=== PATIENT | female | born 1975 | race Two or more races ===

== ENCOUNTER 2025-02-27 11:39 | Inpatient (IN) | payer BC, OTHER ==
[2025-02-27] VITALS (7 sets, daily range): BP systolic 147–156; BP diastolic 94–98; PULSE 100–123; RESP 18–28; TEMP 97.7–98.1; O2SAT 93–100
[~2025-02-27] VITALS: Ht 160 cm; Wt 88.5 kg
--- NOTE | 2025-02-27 12:06 | ED.PDOC ---
HPI Comments 49 year old female with PMHx HTN, HI, COPD, GERD, asthma presents to the ED with a chief complaint of chest pain onset 4 days. Patient states she lives in [place], came to [place] for her sisters was 3 days ago. Since then, patient has been under stress, has been experiencing chest pain, worsens with inspiration. Last admission to [facility] was 07/02/24, was diagnosed with Pneumonia. Denies fever, chills, nausea, vomiting, diarrhea, abdominal pain. No other symptoms or modifying factors present at this time. Chief Complaint: Shortness of Breath Time Seen by MD: 11:50 Reviewed Notes: Medications, Allergies Allergies: Coded Allergies: ESTER Inhibitors (Verified Allergy, Unknown, 02/27/25) Information Source: Patient Mode of Arrival: Wheelchair Severity: Moderate Timing: Days Duration: Since onset Prehospital treatment: None Location: Chest (L) Radiation: No Radiation Quality: Sharp, Pressure Onset: At Rest Cardiac Risk Factors: Smoker, HTN PE Risk Factors: None History of: HI Modifying Factors: Nothing Past Medical History PAST MEDICAL HISTORY: Asthma, COPD, GERD, HTN, HI Surgical History: Denies all surgeries BROADCAST SYSTEMS ENGINEER History: No Pertinent BROADCAST SYSTEMS ENGINEER History Social History Smoker: Cigarettes Alcohol: Denies ETOH Use Drugs: Denies Drug Use Lives In: Home Constitutional: denies: chills, diaphoresis, fatigue, fever, malaise, sweats, weakness, others EENTM: denies: blurred vision, double vision, ear bleeding, ear discharge, ear drainage, ear pain, ear ringing, eye pain, eye redness, hearing loss, mouth pain, mouth swelling, nasal discharge, nose bleeding, nose congestion, nose pain, photophobia, tearing, throat pain, throat swelling, voice changes, others Respiratory: denies: cough, hemoptysis, orthopnea, SOB at rest, shortness of breath, SOB with excertion, stridor, wheezing, others Cardiovascular: reports: chest pain; denies: dizzy spells, diaphoresis, Dyspnea on exertion, edema, irregular heart beat, left arm pain, lightheadedness, palp itations, PND, syncope, others Gastrointestinal: denies: abdomen distended, abdominal pain, blood streaked bowels, constipated, diarrhea, dysphagia, difficulty swallowing, hematemesis, melena, nausea, poor appetite, poor fluid intake, rectal bleeding, rectal pain, vomiting, others Genitourinary: denies: abnormal vagina bleeding, burning, dyspareunia, dysuria, flank pain, frequency, hematuria, incontinence, pain, , vagina discharge, urgency, others Neurological: denies: dizziness, fainting, headache, left sided numbness, left sided weakness, numbness, paresthesia, pre-existing deficit, right sided numbness, right sided weakness, seizure, speech problems, tingling, tremors, weakness, others Musculoskeletal: denies: back pain, gout, joint pain, joint swelling, muscle pain, muscle stiffness, neck pain, others Integumetry: denies: bruises, change in color, change in hair/nails, dryness, laceration, lesions, lumps, rash, wounds, others Allergic/Immunocompromised: denies: Difficulty Healing, Frequent Infections, Hives, Itching, others Hematologic/Lymphatic: denies: anemia, blood clots, easy bleeding, easy br uising, swollen glands, others Endocrine: denies: excessive hunger, excessive sweating, excessive thirst, excessive urination, flushing, intolerance to cold, intolerance to heat, unexplained weight gain, unexplained weight loss, others Psychiatric: reports: anxiety; denies: bipolar disorder, depression, hopeless, panic disorder, schizophrenia, sleepless, suicidal, others All Other Systems: Reviewed and Negative Physical Exam General Appearance: Normal, Other (anxious appearing) HEENT: Normal ENT Inspection, Pharynx Normal, TMs Normal Neck: Full Range of Motion, Non-Tender, Normal, Normal Inspection Respiratory: Chest Non-Tender, Lungs Clear, No Accessory Muscle Use, No Respiratory Distress, Normal Breath Sounds Cardiovascular: No Edema, No JVD, No Murmur, No Gallop, Normal Peripheral Pulses, Regular Rate/Rhythm Breast Exam: Deferred Gastrointestinal: No Organomegaly, Non Tender, No Pulsatile Mass, Normal Bowel Sounds, Soft Genitalia: Deferred Pelvic: Deferred Rectal: Deferred Extremities: No calf tenderness, Normal capillary refill, Normal inspection, Normal range of motion, Non-tender, No pedal edema Musculoskeletal : Apperance: Normal Neurologic: Alert, second vp hr assessment II-XII nml as Tested, No Motor Deficits, Normal Affect, Normal Mood, No Sensory Deficits Cerebellar Function: Normal Reflexes: Normal Skin: Dry, Normal Color, Warm Lymphatic: No Adenopathy Was a procedure done? Was a procedure done?: No CP Differential Dx Differential Diagnosis: Pulmonary Embolus Differential Diagnosis: Angina, Aortic dissection, Chest Wall Pain, Cholelithiasis, Costochondritis, Esophageal reflux/spasm, Gastritis, Myocardial Infarction, Pericarditis, Pneumonia, Pneumothorax, Pulmonary Embolus X-Ray, Labs, Meds, VS Vital Signs Date Time Temp Pulse Resp B/P (MAP) Pulse Ox O2 Delivery O2 Flow Rate FiO2 02/27/25 12:32 123 22 100 Room Air* 0 21 02/27/25 12:30 97.7 120 22 147/94 (111) 99 97.7 02/27/25 11:42 97.5 120 18 138/89 100 97.5 Lab Test 02/27/25 13:26 02/27/25 12:36 Range/Units Troponin I High Sensitivity 47 *H 49 *H </=34 ng/L White Blood Count 8.8 4.4-10.8 10^3/uL Red Blood Count 3.77 L 4.0-5.20 10^6/uL Hemoglobin 9.3 L 12.2-16.2 g/dL Hematocrit 29.0 L 36.0-46.0 % Mean Corpuscular Volume 76.8 L 80.0-100.0 fL Mean Corpuscular Hemoglobin 24.7 L 28.0-32.0 pg Mean Corpuscular Hemoglobin Concent 32.2 32.0-36.0 g/dL Red Cell Distribution Width 23.2 H 11.8-14.3 % Platelet Count 655 H 140-450 10^3/uL Mean Platelet Volume 7.9 6.9-10.8 fL Neutrophils (%) (Auto) 74.4 37.0-80.0 % Lymphocytes (%) (Auto) 17.1 10.0-50.0 % Monocytes (%) (Auto) 6.9 0.0-12.0 % Eosinophils (%) (Auto) 0.8 0.0-7.0 % Basophils (%) (Auto) 0.8 0.0-2.0 % Neutrophils # (Auto) 6.5 1.6-8.6 10 ^3/uL Lymphocytes # (Auto) 1.5 0.4-5.4 10 ^3/uL Monocytes # (Auto) 0.6 0-1.3 10 ^3/uL Eosinophils # (Auto) 0.1 0-0.8 10 ^3/uL Basophils # (Auto) 0.1 0-0.2 10 ^3/uL Nucleated Red Blood Cells 0.1 % Sodium Level 143 136-145 mmol/L Potassium Level 2.9 L 3.5-5.1 mmol/L Chloride Level 104 98-107 mmol/L Carbon Dioxide Level 24 20-31 mmol/L Anion Gap 15 5-15 Blood Urea Nitrogen 9 9-23 mg/dL Creatinine 0.93 0.550-1.02 mg/dL Glomerular Filtration Rate Calc 74 >90 mL/min BUN/Creatinine Ratio 9.7 L 10.0-20.0 Serum Glucose 119 H 74-106 mg/dL Calcium Level 9.7 8.7-10.4 mg/dL Current Medications Medications (Trade) Dose Ordered Sig/Bhaskar Route Start Time Stop Time Status Last Admin Ketorolac Tromethamine (Toradol Injection) 15 mg ONCE ONCE IM 02/27/25 12:15 02/27/25 12:16 DC 02/27/25 12:37 [place] [id number] Ph: [phone] DIAGNOSTIC IMAGING Diagnostic Imaging Report : [id number] Signed PATIENT: MARGARET MCGILL ACCT: [id number] UNIT: [id number] : 1975 LOC: ER ROOM / BED: / AGE / SEX: 49 / F ADM STATUS: REG ER SERVICE 1202 ORDERING PHYSICIAN: LOW FALL MD PROCEDURE(s): CXR1 - CHEST XRAY 1 VIEW REASON: cp ORDER NUMBER(s): [id number], ACCESSION NUMBER(s): [id number] CHEST RADIOGRAPH Indication: cp Technique: Single frontal view of the chest was obtained Comparison: None FINDINGS: Lines and Tubes: None Lungs: Areas of scarring or linear atelectasis left base with tenting of the left diaphragm. Pleura: No effusion. No pneumothorax. Cardiomediastinal contours: Unremarkable Bones: No acute osseous abnormality. IMPRESSION: 1. Scarring or linear atelectasis left lower lung field with tenting of the left diaphragm. 2. No prior studies for comparison to determine acute versus chronic changes. ATED BY: SHAUNA WILLETT Jr., DO DICTATED DATE/TIME: 02/27/25 1238 SIGNED BY: SHAUNA WILLETT Jr., SIGNED DATE/TIME: 02/27/251237 CC: Time of 1ST Reevaluation: 12:20 Reevaluation 1ST: Unchanged Patient Education/Counseling: Diagnosis, Treatment, Prognosis, Need For Follow Up Family Education/Counseling: No Family Present Comments pt has a HEART score of 5. her trp is elevated. she will be admitted for nstemi Due to concerns for patients condition deteriorating, the care required my highest level of attention and readiness to intervene. I assessed the patient, reviewed the medical records, ordered the appropriate tests and treatments, then reassessed for results and responsiveness. I communicated with medical personnel and consultants and formulated a plan of care. Total critical care time excludes any procedures 55 mins Additional Information Review charts from previous visit: 01/28/21 with diarrhea, 07/02/24 with pneumonia The following tests were ordered, and results were reviewed by me: XY CHEST, TROP-x3, BMP, CBC Additional Information was gathered from interviewing the following independent historians: I reviewed and agreed with the following test results read by other providers: XY CHEST I discussed treatment and results with medical personnel and: patient Comprehensive systems review obtained and negative except for what is stated in the HPI. SEPSIS Sepsis Screen Date sepsis recognized/suspect: Feb 27, 2025 Time Sepsis recognized/suspect: 1145 Recent Procedure: No On Antibiotic Therapy: No Respiratory Rate >20: No Heart Rate >90: Yes Temp<36 C (96.8 F) or >38.3 C: No SBP <90 or MAP <65 mmHG: No New Acute Mental Status Change: No Is the patient on CPAP, BIPAP,: No Physician Orders Chest Xray 1 View (02/27/25 12:02) Troponin-I Hs (02/27/25 15:02) Potassium Er Tablet (Klor-Con Tablet) (02/27/25 14:30) Aspirin Chewable Tablet (02/27/25 14:30) Vital Signs Date Time Temp Pulse Resp B/P (MAP) Pulse Ox O2 Delivery O2 Flow Rate FiO2 02/27/25 12:32 123 22 100 Room Air* 0 21 02/27/25 12:30 97.7 120 22 147/94 (111) 99 97.7 02/27/25 11:42 97.5 120 18 138/89 100 97.5 Laboratory Tests Test 02/27/25 12:36 White Blood Count 8.8 10^3/uL (4.4-10.8) Medications Medications Dose Ordered Sig/Bhaskar Route Start Time Stop Time Status Last Admin Dose Admin Ketorolac Tromethamine 15 mg ONCE ONCE IM 02/27/25 12:15 02/27/25 12:16 DC 02/27/25 12:37 Departure 1 Departure Time of Disposition: 14:26 Impression: Primary Impression: NSTEMI (non-ST elevated myocardial infarction) Disposition: ADMITTED INPATIENT Admit to: Tele Condition: Serious Discharged With: Self Critical Care Note Critical Care Time?: Yes (55 min-critical care time only) Critical care comment: Due to concerns for patients condition deteriorating, the care required my highest level of attention and readiness to intervene. I assessed the patient, reviewed the medical records, ordered the appropriate tests and treatments, then reassessed for results and responsiveness. I communicated with medical personnel and consultants and formulated a plan of care. Total critical care time excludes any procedures Stability Stability form required: No Heart Score Heart Score: Heart Score Response (Comments) Value History N/A 0 EKG N/A 0 Age N/A 0 Risk Factors N/A 0 Troponin N/A 0 Total 0 I personally scribed for LOW FALL MD ([email or web address]) on 02/27/25 at 12:06. Electronically submitted by Mattie Anthony ([email or web address]). I personally scribed for LOW FALL MD ([email or web address]) on 02/27/25 at 12:30. Electronically submitted by Mattie Anthony ([email or web address]). I personally scribed for LOW FALL MD ([email or web address]) on 02/27/25 at 12:44. Electronically submitted by Mattie Anthony ([email or web address]). LOW FALL MD Feb 27, 2025 12:06
[2025-02-27] MEDS: KETOROLAC TROMETH 30 MG/ML 1ML VIAL IM ONE (12:37)
--- NOTE | 2025-02-27 12:41 | DVH ---
CHEST RADIOGRAPH Indication: cp Technique: Single frontal view of the chest was obtained Comparison: None FINDINGS: Lines and Tubes: None Lungs: Areas of scarring or linear atelectasis left base with tenting of the left diaphragm. Pleura: No effusion. No pneumothorax. Cardiomediastinal contours: Unremarkable Bones: No acute osseous abnormality. IMPRESSION: 1. Scarring or linear atelectasis left lower lung field with tenting of the left diaphragm. 2. No prior studies for comparison to determine acute versus chronic changes.
[2025-02-27 12:58] LABS: Hematocrit 29.0 % (36.0-46.0); Hemoglobin 9.3 g/dL (12.2-16.2); Mean Corpuscular Hemoglobin 24.7 pg (28.0-32.0); Mean Corpuscular Volume 76.8 fL (80.0-100.0); Nucleated Red Blood Cells % 0.1 %
[2025-02-27 13:01] LABS: Chloride 104 mmol/L (98-107); Sodium 143 mmol/L (136-145)
[2025-02-27 13:02] LABS: Anion Gap 15 (5-15); Calcium 9.7 mg/dL (8.7-10.4); Carbon Dioxide 24 mmol/L (20-31)
[2025-02-27 13:06] LABS: Potassium 2.9 mmol/L (3.5-5.1)
[2025-02-27 13:07] LABS: BUN/Creatinine Ratio 9.7 (10.0-20.0); Blood Urea Nitrogen 9 mg/dL (9-23)
[2025-02-27 13:13] LABS: Glucose 119 mg/dL (74-106)
[2025-02-27] MEDS ORDERED: MORPHINE SULFATE INJ 2 MG/ml SYRG IV PRN (15:00)
[2025-02-27] MEDS ORDERED: ACETAMINOPHEN 325 MG TAB PO PRN (15:00)
[2025-02-27] MEDS ORDERED: NITROGLYCERIN 0.4 MG SL TAB SL PRN (15:00)
[2025-02-27] MEDS ORDERED: ONDANSETRON HCL 4 MG/2 ML VIAL IV PRN (15:00)
[2025-02-27] MEDS: POTASSIUM CHL 20 Meq TABLET PO ONE (15:08)
--- NOTE | 2025-02-27 15:34 | DVHHP2 ---
History of Present Illness Reason for Visit: Shortness of breath History of Present Illness Juani Myles is a 49-year-old female with past medical history of hypertension, COPD, GERD, and asthma, who came to the hospital for shortness of breath. Patient states she has been experiencing shortness of breath since last Thursday. [place] here for her sister's . She didn't want to come to the hospital sooner cause she didn't want to miss her . She states she is getting left sided chest pain, worse with deep breath. Patient states that she has had a full feeling for a couple weeks, and has not been able to eat much. She also states that she has been having vaginal bleeding for a month. Will complete further work up. Cardiovascular: HTN Pulmonary: COPD GI: GERD Past Surgical History: (x 3) Smoke: 1 pack per day ALCOHOL: rare Drugs: None Lives: with Family Domestic Violence: Neg Review of Systems Constitutional: No: Fever, Chills, Sweats, Weakness, Malaise, Other Eyes: No: Pain, Vision change, Conjunctivae inflammation, Eyelid inflammation, Other, Redness ENT: No: Ear pain, Ear discharge, Nose pain, Nose discharge, Nose congestion, Mouth pain, Mouth swelling, Throat pain, Throat swelling, Other Respiratory: Cough, Shortness of breath, SOB with excertion; No: Dry, Wheezing, Hemoptysis, Pleuritic Pain, Sputum, Wheezing, Other Cardiovascular: Chest Pain; No: Palpitations, Orthopnea, Paroxysmal Noc. Dyspnea, Edema, Lt Headedness, Other Gastrointestinal: No: Nausea, Vomiting, Abdominal Pain, Diarrhea, Constipation, Melena, Hematochezia, Other Genitourinary: No Dysuria, No Frequency, No Incontinence, No Hematuria, No Retention, No Other Musculoskeletal: No: other, neck pain, shoulder pain, arm pain, back pain, hand pain, leg pain, foot pain Skin: No: Rash, Lesions, Jaundice, Bruising, Other Neurological: No: Weakness, Numbness, Incoordination, Change in speech, Confusion, Seizures, Other Allergies: Coded Allergies: ESTER Inhibitors (Verified Allergy, Unknown, 02/27/25) Medications Current Medications Medications Dose Ordered Sig/Bhaskar Route Start Time Stop Time Status Last Admin Dose Admin Acetaminophen/ Hydrocodone Bitart 1 tab Q4HP PRN PO 02/27/25 15:00 UNV Ondansetron HCl 4 mg Q4HP PRN IV 02/27/25 15:00 UNV Docusate Sodium 100 mg BIDPRN PRN PO 02/27/25 15:00 UNV Acetaminophen 650 mg Q6HP PRN PO 02/27/25 15:00 UNV Nitroglycerin 0.4 mg Q5MINP PRN SL 02/27/25 15:00 UNV Morphine Sulfate 2 mg Q30M PRN IV 02/27/25 15:00 UNV Exam Vital Signs Vital Signs Date Time Temp Pulse Resp B/P (MAP) Pulse Ox O2 Delivery O2 Flow Rate FiO2 02/27/25 12:32 123 22 100 Room Air* 0 21 02/27/25 12:30 97.7 147/94 (111) 97.7 General Appearance: Alert, Oriented X3, Cooperative, moderate distress HEENT: Atraumatic, PERRLA, Other (Mucous membr dry) Respiratory: Other (Diminshed breath sounds, worse on left) Cardiovascular: Normal S1, Normal S2, Other (ST) Abdominal: Normal bowel sounds, Soft, No tenderness Extremities: No clubbing, No cyanosis, No edema, Normal pulses Skin: No rashes, No breakdown, No significant lesion Neuro: Normal gait, Normal speech, Strength at 5/5 X4 ext, Normal tone Psych/Mental Status: Mental status NL, Mood NL Labs/Xrays Labs Test 02/27/25 13:26 02/27/25 12:36 Range/Units Troponin I High Sensitivity 47 *H </=34 ng/L White Blood Count 8.8 4.4-10.8 10^3/uL Red Blood Count 3.77 L 4.0-5.20 10^6/uL Hemoglobin 9.3 L 12.2-16.2 g/dL Hematocrit 29.0 L 36.0-46.0 % Mean Corpuscular Volume 76.8 L 80.0-100.0 fL Mean Corpuscular Hemoglobin 24.7 L 28.0-32.0 pg Mean Corpuscular Hemoglobin Concent 32.2 32.0-36.0 g/dL Red Cell Distribution Width 23.2 H 11.8-14.3 % Platelet Count 655 H 140-450 10^3/uL Mean Platelet Volume 7.9 6.9-10.8 fL Neutrophils (%) (Auto) 74.4 37.0-80.0 % Lymphocytes (%) (Auto) 17.1 10.0-50.0 % Monocytes (%) (Auto) 6.9 0.0-12.0 % Eosinophils (%) (Auto) 0.8 0.0-7.0 % Basophils (%) (Auto) 0.8 0.0-2.0 % Neutrophils # (Auto) 6.5 1.6-8.6 10 ^3/uL Lymphocytes # (Auto) 1.5 0.4-5.4 10 ^3/uL Monocytes # (Auto) 0.6 0-1.3 10 ^3/uL Eosinophils # (Auto) 0.1 0-0.8 10 ^3/uL Basophils # (Auto) 0.1 0-0.2 10 ^3/uL Nucleated Red Blood Cells 0.1 % Sodium Level 143 136-145 mmol/L Potassium Level 2.9 L 3.5-5.1 mmol/L Chloride Level 104 98-107 mmol/L Carbon Dioxide Level 24 20-31 mmol/L Anion Gap 15 5-15 Blood Urea Nitrogen 9 9-23 mg/dL Creatinine 0.93 0.550-1.02 mg/dL Glomerular Filtration Rate Calc 74 >90 mL/min BUN/Creatinine Ratio 9.7 L 10.0-20.0 Serum Glucose 119 H 74-106 mg/dL Calcium Level 9.7 8.7-10.4 mg/dL CHEST RADIOGRAPH FINDINGS: Lines and Tubes: None Lungs: Areas of scarring or linear atelectasis left base with tenting of the lef t diaphragm. Pleura: No effusion. No pneumothorax. Cardiomediastinal contours: Unremarkable Bones: No acute osseous abnormality. IMPRESSION: 1. Scarring or linear atelectasis left lower lung field with tenting of the left diaphragm. 2. No prior studies for comparison to determine acute versus chronic changes. SEPSIS Sepsis Screen Date sepsis recognized/suspect: Feb 27, 2025 Time Sepsis recognized/suspect: 1145 Recent Procedure: No On Antibiotic Therapy: No Respiratory Rate >20: No Heart Rate >90: Yes Temp<36 C (96.8 F) or >38.3 C: No SBP <90 or MAP <65 mmHG: No New Acute Mental Status Change: No Is the patient on CPAP, BIPAP,: No Physician Orders Chest Xray 1 View (02/27/25 12:02) Troponin-I Hs (02/27/25 15:02) Admit (02/27/25 14:56) Code Status (02/27/25 14:56) 2 Gm Sodium Diet (02/27/25 Dinner) Hydrocodone-Acet 5/325mg Tab ([place] /32 (02/27/25 15:00) Ondansetron Hcl (Zofran) (02/27/25 15:00) Docusate Sodium Capsule (Colace Capsule) (02/27/25 15:00) Complete Blood Count (02/28/25 04:00) Comprehensive Metabolic Panel (02/28/25 04:00) Echo 2d Mode Cardiac Dop (02/27/25 14:56) Condition: Serious (02/27/25 14:56) Acetaminophen Tablet (Tylenol Tablet) (02/27/25 15:00) Nitroglycerin Sublingual (Ntrostat Subli (02/27/25 15:00) Morphine Sulfate Injection (02/27/25 15:00) Stat Ekg For Chest Pain (02/27/25 14:56) Notify Md Of Changes From Base (02/27/25 14:56) Wrapping Machine Tender For 24 Hours (02/27/25 14:56) Emergency Dysrhythmia Protocol (02/27/25 14:56) Rhythm Strips Once Every Shift (02/27/25 14:56) Oxygen By Nasal Cannula (02/27/25 14:56) D-Dimer (02/27/25 15:01) Vital Signs Date Time Temp Pulse Resp B/P (MAP) Pulse Ox O2 Delivery O2 Flow Rate FiO2 02/27/25 12:32 123 22 100 Room Air* 0 21 02/27/25 12:30 97.7 120 22 147/94 (111) 99 97.7 02/27/25 11:42 97.5 120 18 138/89 100 97.5 Laboratory Tests Test 02/27/25 12:36 White Blood Count 8.8 10^3/uL (4.4-10.8) Medications Medications Dose Ordered Sig/Bhaskar Route Start Time Stop Time Status Last Admin Dose Admin Ketorolac Tromethamine 15 mg ONCE ONCE IM 02/27/25 12:15 02/27/25 12:16 DC 02/27/25 12:37 15 MG Assessment/Plan Assessment/Plan Assessment: Hypokalemia, Elevated troponin, Elevated D-dimer, Possible pneumonia, Abnormal vaginal bleeding, Plan: Admit to Tele, ECHO, Consider cardiology consult, D-Dimer, Possible CT angio of chest, Breathing treatments, IV antibiotics, Manage/Monitor electrolytes closely, Consider AIRPORT CLERK consult, Plan discussed with: Patient My Orders Orders - NICKOLAS CHAO Procedure Category Date Status Time Admit ADMIT 02/27/25 Transmitted 14:56 Code Status CODE 02/27/25 Transmitted 14:56 2 Gm Sodium Diet DIET 02/27/25 Transmitted Dinner Hydrocodone-Acet PHA 02/27/25 Logged 5/325mg Tab ([place] 15:00 Ondansetron Hcl PHA 02/27/25 Logged (Zofran) 15:00 Docusate Sodium PHA 02/27/25 Logged Capsule (Colace 15:00 Complete Blood Count LAB 02/28/25 Verified 04:00 Comprehensive LAB 02/28/25 Verified Metabolic Panel 04:00 Echo 2d Mode Cardiac US 02/27/25 Logged DOP 14:56 Condition: Serious [facility] 02/27/25 In Process 14:56 Acetaminophen Tablet PHA 02/27/25 Logged (Tylenol Tablet) 15:00 Nitroglycerin PHA 02/27/25 Logged Sublingual (Ntrostat 15:00 Morphine Sulfate PHA 02/27/25 Logged Injection 15:00 Stat Ekg For Chest [facility] 02/27/25 In Process Pain 14:56 Notify Of Changes [facility] 02/27/25 In Process From Base 14:56 Wrapping Machine Tender For [facility] 02/27/25 In Process 24 Hours 14:56 Emergency Dysrhythmia [facility] 02/27/25 In Process Protocol 14:56 Rhythm Strips Once [facility] 02/27/25 In Process Every Shift 14:56 Oxygen By Nasal RT 02/27/25 Transmitted Cannula 14:56 D-Dimer LAB 02/27/25 Transmitted 15:01 Date of Service: Feb 27, 2025 Billing Provider: NICKOLAS CHAO Common Visit Codes: 52070-[id number] INP/OBS CARE (HIGH) NICKOLAS CHAO Feb 27, 2025 15:34
[2025-02-27] MEDS ORDERED: ALBUTEROL SULF 2.5 MG/0.5ML(0.5%) NEB SOLN NEB SCH (18:00)
--- NOTE | 2025-02-27 19:35 | DVH ---
COMPUTERIZED TOMOGRAPHIC ANGIOGRAPHY OF THE CHEST WITH INTRAVENOUS CONTRAST REASON FOR EXAM: Chest pain. R/O PE COMPARISON: XY CHEST XRAY 1 VIEW on DOS: 02/27/25 TECHNIQUE: The exam was performed on a multidetector spiral scanner. Spiral images were acquired from the thoracic inlet through the adrenal glands, during the bolus intravenous administration of contrast. Multiplanar maximum intensity projection (MIP) images were provided. Radiation optimization: All CT scans at this facility use at least one of these dose optimization techniques: Automated exposure control mA and/or kV adjustment per patient size (includes targeted exams where dose is matched to clinical indication) or iterative reconstruction. CONTRAST ADMINISTERED: 100 mL omnipaque 350 intravenously. RADIATION DOSE: CTDI: 28 mGy DLP: 1028 mGy-cm FINDINGS: Respiratory motion significantly degrades evaluation of the lung parenchyma. There are several filling defects throughout pulmonary arterial tree in both lungs involving interlobar and subsegmental branches with the greatest clot burden in the left lower lobe. There are several wedge-shaped peripheral areas of ground-glass opacity in the left lower lobe likely representing evolving pulmonary infarcts. There is subtle perihilar patchy ground-glass opacity in both lungs suggesting pulmonary edema. There is a small left pleural effusion. There is no pneumothorax. The visualized thyroid gland is grossly unremarkable. The heart is not enlarged. There is no thoracic aortic aneurysm identified. There are prominent subsegmental mediastinal and hilar lymph nodes. There is an approximately 5.3 x 8.3 cm masslike density in the right upper quadrant of the partially visualized abdomen that may represent a distended bowel loop, only partially visualized. No acute osseous abnormality is identified. IMPRESSION: Extensive pulmonary emboli bilaterally involving interlobar and more distal branches of the pulmonary arterial tree. Peripheral wedge-shaped ground-glass opacities in the left lower lobe likely represent evolving pulmonary infarcts. Subtle ground-glass opacity in both lungs in a perihilar distribution is suggestive of pulmonary edema. Small left pleural effusion. Possible partially visualized mass in the right upper quadrant of the abdomen. This is only partially visualized and may represent a distended bowel loop. Recommend further evaluation of the abdomen and pelvis. Pulmonary emboli Critical Result: Pumonary Emboli Findings discussed with EMIL Ballesteros, at 02/27/2025 07:29 PM, and acknowledged receipt and understanding of the findings. #CRITICAL#
[2025-02-27] MEDS: IPRATROPIUM BROM 0.5 MG/2.5ML INH SOL NEB SCH (19:48)
[2025-02-27] MEDS: LEVALBUTEROL HCL 1.25 MG/3 ML NEB NEB SCH (19:49)
[2025-02-27] MEDS: IOHEXOL 350 MG/ML 100ML IJ ONE (19:54)
[2025-02-27 20:15] LABS: Potassium 4.1 mmol/L (3.5-5.1)
[2025-02-27 20:22] LABS: Magnesium 1.9 mg/dL (1.6-2.6)
[2025-02-27 20:38] LABS: INR 1.03 (0.9-1.15); Partial Thromboplastin Time 26.2 SEC (24.5-34.5); Prothrombin Time 10.9 sec (9.3-11.8)
--- NOTE | 2025-02-27 20:42 | DVH ---
Exam: CT CT AB PEL WO CON-NO ORAL OR IV History: abd pain Comparison Study: None TECHNIQUE: Multidetector CT of the abdomen AND PELVIS without IV contrast. Axial, coronal and sagittal multiplanar reformats were obtained from the axial data set by the technologist. Radiation Dose Information: CT Dose: CTDI volume is 26.27 mGy. Dose-length product is 1484.04 mGy*cm FINDINGS: Trace left-sided pleural effusion with bibasilar atelectasis and patchy glass opacities of the left lower lobe with surrounding consolidation. Borderline cardiomegaly. Liver, spleen, gallbladder, pancreas and adrenal glands unremarkable. Contrast is noted within the bilateral renal collecting systems. [id number] Right-sided Hydronephrosis with mild right proximal hydro ureter. Contrast is noted within the urinary bladder. Slight bulky heterogeneous appearance of the uterus with multiple heterogeneous lesions and a partially calcified lesion. The uterus measures up to 11 x 20 x 15 cm and extends up to the level of the midabdomen. 8 and pulmonary is noted in place. Stomach is unremarkable. 1.1 cm Suggested small bowel lipoma of the left lower abdominal quadrant. Small bowel loops are unremarkable. Contrast is noted within Small bowel loops over the left hemiabdomen and left hemipelvis. Appendix is not definitely visualized. Large bowel is unremarkable. No evidence of intraperitoneal free air or free fluid. No evidence of aortic aneurysm . No significant lymphadenopathy. Sub centimeter bilateral inguinal lymph nodes which may be reactive. 1.4 x 4 cm lipoma over the right medial upper thigh. No evidence of acute osseous abnormalities. IMPRESSION: There is significant enlargement of the uterus which appears heterogeneous with multiple heterogeneous lesions. Correlate for Possible myomatous uterus. Neoplasm can not be completely excluded. Recommend correlation with history and ultrasound /MRI for further evaluation. Trace left-sided pleural effusion with bibasilar atelectasis possible left basilar areas of infarcts when correlated with same day CTA chest. [id number]-[id number] Right-sided hydronephrosis mild right proximal hydroureter which may be from mass effect from the significantly enlarged uterus
[2025-02-27 21:30] LABS: Hematocrit 28.3 % (36.0-46.0); Hemoglobin 9.0 g/dL (12.2-16.2); Mean Corpuscular Hemoglobin 24.4 pg (28.0-32.0); Mean Corpuscular Volume 76.9 fL (80.0-100.0); Nucleated Red Blood Cells % 0.2 %
[2025-02-27] MEDS: HEPARIN SODIUM (PORCINE) 5000 UNITS/ML 1ML VIAL IV ONE (21:43)
[2025-02-27] MEDS: HEPARIN DRIP/D5W 100UNITS/ML 250 ML IV SCH (21:45)
--- NOTE | 2025-02-27 21:47 | DVH ---
TRANSABDOMINAL AND TRANSVAGINAL PELVIC ULTRASOUND CLINICAL HISTORY: Abdominal mass TECHNIQUE: Multiple grayscale ultrasound images were obtained of the pelvis via transabdominal approach. Limited color Doppler and spectral Doppler acquisitions were also obtained. COMPARISON: None FINDINGS: Uterus: 19.5 x 12 x 7 x 15.4 cm. The uterine contour is smooth. Multiple uterine masses some of which contain calcification. A patient services representative mass measures 6.5 x 5.4 x 5.3 cm. Endometrium: Distorted from the uterine masses and not optimally evaluated, possibly measuring 1.2 cm. Right adnexa: right ovary 4.3 x 2.9 x 3.1 cm. Normal arterial blood flow in the ovary. No right adnexal mass seen. Left adnexa: left ovary not visualized. No left adnexal mass seen. Other: None IMPRESSION: 1. Markedly enlarged uterus containing numerous masses likely fibroids.
[2025-02-27] MEDS: HYDROcodone-ACET 5/325MG TAB PO PRN (22:39)
[2025-02-28] VITALS (13 sets, daily range): BP systolic 112–143; BP diastolic 63–94; PULSE 83–113; RESP 17–19; TEMP 98–99.1; O2SAT 94–100
[2025-02-28] MEDS ORDERED: NORETAB32 PO (00:15)
[2025-02-28] MEDS: DOCUSATE SOD 100 MG CAP PO PRN (03:24)
[2025-02-28 04:34] LABS: Hematocrit 24.8 % (36.0-46.0); Hemoglobin 8.0 g/dL (12.2-16.2); Mean Corpuscular Hemoglobin 24.3 pg (28.0-32.0); Mean Corpuscular Volume 75.2 fL (80.0-100.0); Nucleated Red Blood Cells % 0.2 %
[2025-02-28 04:43] LABS: INR 1.14 (0.9-1.15); Partial Thromboplastin Time 44.1 SEC (24.5-34.5); Prothrombin Time 11.9 sec (9.3-11.8)
[2025-02-28 04:55] LABS: Albumin 3.9 g/dL (3.2-4.8); Anion Gap 12 (5-15); BUN/Creatinine Ratio 12.0 (10.0-20.0); Blood Urea Nitrogen 9 mg/dL (9-23); Calcium 9.0 mg/dL (8.7-10.4); Carbon Dioxide 22 mmol/L (20-31); Chloride 104 mmol/L (98-107); Glucose 89 mg/dL (74-106); Sodium 138 mmol/L (136-145); Total Protein 7.3 g/dL (5.7-8.2)
[2025-02-28 05:00] LABS: Alanine Aminotransferase < 9 U/L (7-40); Alkaline Phosphatase 35 U/L (46-116); Bilirubin, Total 0.3 mg/dL (0.2-1.0); Potassium 3.5 mmol/L (3.5-5.1)
[2025-02-28] MEDS: HEPARIN DRIP/D5W 100UNITS/ML 250 ML IV SCH ×2 (05:22→18:30)
--- NOTE | 2025-02-28 07:47 | DVHCONRES ---
Date Seen: Feb 28, 2025 Resident Creating Document: KEELEY KAUR Jr., MD Referring Physician ER Reason for Consultation pulmonary embolism History of Present Illness 49-year-old female with past medical history of hypertension, COPD, GERD, and asthma, who came to the hospital for shortness of breath. Patient states she has been experiencing shortness of breath since last Thursday. [place] came here for her sister's . She didn't want to come to the hospital sooner cause she didn't want to miss her . She states she is getting left sided chest pain, worse with deep breath. She also states that she has had a full feeling and has not been able to eat much. Past Medical History copd, gerd, htn Past Surgical History Family History no history Social History 1 pack a day smoker Allergies: Coded Allergies: ESTER Inhibitors (Verified Allergy, Unknown, 02/27/25) Home Meds Reported Medications Norethindrone Acetate-Ethinyl (LO LOESTRIN FE) Tab, 2 TAB PO DAILY, #28 TAB 11 Refills 02/28/25 Current Medications Current Medications Medications (Trade) Dose Ordered Sig/Bhaskar Route PRN Reason Start Time Stop Time Status Last Admin Acetaminophen/ Hydrocodone Bitart (Artesian 5/325MG Tab) 1 tab Q4HP PRN PO MODERATE PAIN (4-6 PAIN SCALE) 02/27/25 15:00 02/28/25 03:24 Ondansetron HCl (Zofran) 4 mg Q4HP PRN IV NAUSEA / VOMITING 02/27/25 15:00 Docusate Sodium (Colace Capsule) 100 mg BIDPRN PRN PO FOR CONSTIPATION 02/27/25 15:00 02/28/25 03:24 Acetaminophen (Tylenol Tablet) 650 mg Q6HP PRN PO PAIN SCALE 1-3 OR TEMP>100.4 02/27/25 15:00 Nitroglycerin (Ntrostat Sublingual) 0.4 mg Q5MINP PRN SL FOR CHEST PAIN 02/27/25 15:00 Morphine Sulfate 2 mg Q30M PRN IV FOR CHEST PAIN 02/27/25 15:00 Ipratropium [place] (Atrovent Medneb) 0.5 mg Q6HWA NEB 02/27/25 18:00 02/28/25 07:30 Albuterol (Ventolin Medneb) 2.5 mg Q6HWA [facility] 02/27/25 18:00 Cancel Levalbuterol HCl (Xopenex Medneb) 0.625 mg Q6HWA [facility] 02/27/25 18:00 02/28/25 07:30 Heparin Sodium/ Dextrose 250 ml @ 16 mls/hr [id number] IV 02/27/25 21:00 02/28/25 04:54 DC 02/27/25 21:45 Heparin Sodium/ Dextrose 250 ml @ 18 mls/hr [id number] IV 02/28/25 05:00 02/28/25 05:22 Review of Systems all systems reviewed otherwise negative Vital Signs Vital Signs Date Time Temp Pulse Resp B/P (MAP) Pulse Ox O2 Delivery O2 Flow Rate FiO2 02/28/25 07:36 100 18 100 02/28/25 07:30 Room Air* 0 21 02/28/25 04:47 99.1 143/94 (110) 99.1 Physical Exam lungs dec. bs at bases ST abd. soft nt lower ext. no edema non tender, palp. pedal pulses Labs/Diagnostic Data Labs Test 02/28/25 03:54 02/27/25 20:00 02/27/25 16:13 02/27/25 12:36 Range/Units White Blood Count 6.8 4.4-10.8 10^3/uL Red Blood Count 3.29 L 4.0-5.20 10^6/uL Hemoglobin 8.0 L 12.2-16.2 g/dL Hematocrit 24.8 #L 36.0-46.0 % Mean Corpuscular Volume 75.2 L 80.0-100.0 fL Mean Corpuscular Hemoglobin 24.3 L 28.0-32.0 pg Mean Corpuscular Hemoglobin Concent 32.4 32.0-36.0 g/dL Red Cell Distribution Width 22.8 H 11.8-14.3 % Platelet Count 573 H 140-450 10^3/uL Mean Platelet Volume 8.5 6.9-10.8 fL Neutrophils (%) (Auto) 62.5 37.0-80.0 % Lymphocytes (%) (Auto) 22.2 10.0-50.0 % Monocytes (%) (Auto) 13.5 H 0.0-12.0 % Eosinophils (%) (Auto) 0.9 0.0-7.0 % Basophils (%) (Auto) 0.9 0.0-2.0 % Neutrophils # (Auto) 4.2 1.6-8.6 10 ^3/uL Lymphocytes # (Auto) 1.5 0.4-5.4 10 ^3/uL Monocytes # (Auto) 0.9 0-1.3 10 ^3/uL Eosinophils # (Auto) 0.1 0-0.8 10 ^3/uL Basophils # (Auto) 0.1 0-0.2 10 ^3/uL Nucleated Red Blood Cells 0.2 % Prothrombin Time 11.9 H 9.3-11.8 sec Prothrombin Time INR 1.14 0.9-1.15 Activated Partial Thromboplast Time 44.1 H 24.5-34.5 SEC Sodium Level 138 # 136-145 mmol/L Potassium Level 3.5 3.5-5.1 mmol/L Chloride Level 104 98-107 mmol/L Carbon Dioxide Level 22 20-31 mmol/L Anion Gap 12 5-15 Blood Urea Nitrogen 9 9-23 mg/dL Creatinine 0.75 0.550-1.02 mg/dL Glomerular Filtration Rate Calc 96 >90 mL/min BUN/Creatinine Ratio 12.0 10.0-20.0 Serum Glucose 89 74-106 mg/dL Calcium Level 9.0 8.7-10.4 mg/dL Total Bilirubin 0.3 0.2-1.0 mg/dL Aspartate Amino Transferase (AST) 17 13-40 U/L Alanine Aminotransferase (ALT) < 9 7-40 U/L Alkaline Phosphatase 35 L 46-116 U/L Total Protein 7.3 5.7-8.2 g/dL Albumin 3.9 3.2-4.8 g/dL Magnesium Level 1.9 1.6-2.6 mg/dL Troponin I High Sensitivity 42 *H </=34 ng/L D-Dimer, Quantitative 4.31 H 0.0-0.49 mg/L FEU COMPUTERIZED TOMOGRAPHIC ANGIOGRAPHY OF THE CHEST WITH INTRAVENOUS CONTRAST REASON FOR EXAM: Chest pain. R/O PE COMPARISON: XY CHEST XRAY 1 VIEW on DOS: 02/27/25 TECHNIQUE: The exam was performed on a multidetector spiral scanner. Spiral images were acquired from the thoracic inlet through the adrenal glands, during the bolus intravenous administration of contrast. Multiplanar maximum intensity projection (MIP) images were provided. Radiation optimization: All CT scans at this facility use at least one of these dose optimization techniques: Automated exposure control mA and/or kV adjustment per patient size (includes targeted exams where dose is matched to clinical indication) or iterative reconstruction. CONTRAST ADMINISTERED: 100 mL omnipaque 350 intravenously. RADIATION DOSE: CTDI: 28 mGy DLP: 1028 mGy-cm FINDINGS: Respiratory motion significantly degrades evaluation of the lung parenchyma. There are several filling defects throughout pulmonary arterial tree in both lungs involving interlobar and subsegmental branches with the greatest clot burden in the left lower lobe. There are several wedge-shaped peripheral areas of ground-glass opacity in the left lower lobe likely representing evolving pulmonary infarcts. There is subtle perihilar patchy ground-glass opacity in both lungs suggesting pulmonary edema. There is a small left pleural effusion. There is no pneumothorax. The visualized thyroid gland is grossly unremarkable. The heart is not enlarged. There is no thoracic aortic aneurysm identified. There are prominent subsegmental mediastinal and hilar lymph nodes. There is an approximately 5.3 x 8.3 cm masslike density in the right upper quadrant of the partially visualized abdomen that may represent a distended bowel loop, only partially visualized. No acute osseous abnormality is identified. IMPRESSION: Extensive pulmonary emboli bilaterally involving interlobar and more distal branches of the pulmonary arterial tree. Peripheral wedge-shaped ground-glass opacities in the left lower lobe likely represent evolving pulmonary infarcts. Subtle ground-glass opacity in both lungs in a perihilar distribution is suggestive of pulmonary edema. Small left pleural effusion. Possible partially visualized mass in the right upper quadrant of the abdomen. This is only partially visualized and may represent a distended bowel loop. Recommend further evaluation of the abdomen and pelvis. Pulmonary emboli Critical Result: Pumonary Emboli Findings discussed with EMIL Ballesteros, at 02/27/2025 07:29 PM, and acknowledged receipt and understanding of the findings. Assessment left lower lobe PE (peripheral) no indication currently for thrombectomy Cont. anticoagulation Pulmonary toilet Incentive spirometry non smoking lifestyle Venous duplex lower ext. Plan/Recommendation left lower lobe PE (peripheral) no indication currently for thrombectomy Cont. anticoagulation Pulmonary toilet Incentive spirometry non smoking lifestyle Venous duplex lower ext. Plan discussed with: Patient KEELEY KAUR Jr., MD Feb 28, 2025 07:47
[2025-02-28] MEDS: PANTOPRAZOLE 40 MG/10 ML VIAL INJ IV SCH (10:14)
--- NOTE | 2025-02-28 11:40 | DVH ---
CLINICAL HISTORY: ELEVATED D DIMER TECHNIQUE: Color and duplex doppler imagine of the bilateral lower extremity veins was performed. Vessel compression and augmentation if possible was also performed. COMPARISON: None FINDINGS: Right Lower Extremity: Right common femoral vein: Normal compressibility and flow. Right superficial femoral vein: Normal compressibility and flow. Right popliteal vein: Normal compressibility and flow. There is a 2.7 cm right Little's cyst. Left Lower Extremity: Left common femoral vein: Normal compressibility and flow. Left superficial femoral vein: Normal compressibility and flow. Left popliteal vein: Normal compressibility and flow. IMPRESSION: No sonographic evidence for DVT in the bilateral lower extremities. 2.7 cm right Little's cyst.
[2025-02-28] MEDS: ACETAMINOPHEN 325 MG TAB PO SCH (11:43)
[2025-02-28 11:52] LABS: INR 1.12 (0.9-1.15); Partial Thromboplastin Time 57.1 SEC (24.5-34.5); Prothrombin Time 11.7 sec (9.3-11.8)
[2025-02-28] MEDS ORDERED: KETOROLAC TROMETH 30 MG/ML 1ML VIAL IV SCH (12:00)
[2025-02-28] MEDS: AZITHROMYCIN 500MG/250ML 250 ML IV SCH (13:55)
--- NOTE | 2025-02-28 15:08 | CONS ---
Pharmacy Clinical Information: HEPARIN DRIP, PE PROTOCOL @1128 APTT 57.1 - NO BOLUS / NO CHANGE, CONTINUE HEPARIN DRIP AT RATE 1800 UNITS/HR OR 18 MLS/HR NEXT APTT DRAW SCHEDULED @1730 PER RX PROTOCOL CONFIRMED AND READ BACK WITH MARCELA MOLINA,[facility] RESIDENT Feb 28, 2025 15:08
[2025-02-28] MEDS: methylPREDNISolone SOD SUCC 40 MG/ML VL IV ONE (15:55)
[2025-02-28 17:21] LABS: INR 1.08 (0.9-1.15); Partial Thromboplastin Time 29.7 SEC (24.5-34.5); Prothrombin Time 11.4 sec (9.3-11.8)
--- NOTE | 2025-02-28 18:17 | CONS ---
Pharmacy Clinical Information: HEPARIN DRIP, PE PROTOCOL @1654 APTT 29.7 - PHYSICALLY VERIFIED RATE WITH MARCELA LAGUNA IN PATIENT'S ROOM, HEPARIN DRIP WAS RUN CONTINUOUSLY WITHOUT INTERRUPTION GIVE BOLUS HEPARIN 5000 UNITS IV, THEN INCREASE HEPARIN DRIP RATE TO 2100 UNITS/HR OR 21 MLS/HR NEXT APTT DRAW SCHEDULED @0030 ON 03/01 PER RX PROTOCOL CONFIRMED AND READ BACK WITH RICHARD REYES [facility] RESIDENT Feb 28, 2025 18:17
--- NOTE | 2025-02-28 18:25 | DVHPNRES ---
Progress Note Date Seen: Feb 28, 2025 Resident Creating Document: KRISTI TROTTER RESDIENT Medical Necessity Reason Pt with a Central, PICC or Fol: No Subjective Review of Systems This is a 49-year-old lady with past medical history of hypertension, COPD, GERD and fibroid came to the hospital due to chest pain and shortness of breaths since 1 week. Pain is localized at left side of chest, sharp, worsened with taking DB. She also reports of generalized weakness, and per vaginal bleeding. She has history of fibroids with vaginal bleeding since 20 years, previously recommended surgical treatment, but due to insurance issues the patient could not get the surgery. Surgical history: (3) Social history: Current smoker with 30 pack year history On 02/27, the patient seen and examined at the bedside. Patient is still complained of shortness of breaths, and chest pain. She also reports of per vaginal bleeding, which is baseline status. Objective vital signs Vital Sign Date Time Temp Pulse Resp B/P (MAP) Pulse Ox O2 Delivery O2 Flow Rate FiO2 02/28/25 18:15 93 18 96 02/28/25 18:15 Room Air 02/28/25 18:15 0 21 21 02/28/25 17:00 98.1 112/83 (93) 98.1 Total Intake and Output 02/27/25 02/27/25 02/28/25 15:00 23:00 07:00 Intake Total 16 ml 400 ml Balance 16 ml 400 ml medications Current Medications Medications Dose Ordered Sig/Bhaskar Route Start Time Stop Time Status Last Admin Dose Admin Acetaminophen/ Hydrocodone Bitart 1 tab Q4HP PRN PO 02/27/25 15:00 02/28/25 10:10 1 TAB Ondansetron HCl 4 mg Q4HP PRN IV 02/27/25 15:00 Morphine Sulfate 2 mg Q30M PRN IV 02/27/25 15:00 Ipratropium [place] 0.5 mg Q6HWA NEB 02/27/25 18:00 02/28/25 18:15 0.5 MG Albuterol 2.5 mg Q6HWA NEB 02/27/25 18:00 Cancel Levalbuterol HCl 0.625 mg Q6HWA NEB 02/27/25 18:00 02/28/25 18:15 0.625 MG Acetaminophen 650 mg Q6HR PO 02/28/25 08:45 02/28/25 18:13 650 MG Pantoprazole Sodium 40 mg DAILY IV 02/28/25 10:00 02/28/25 10:14 40 MG Ceftriaxone Sodium 50 ml @ 100 mls/hr DAILY@09 IV 03/01/25 09:00 Azithromycin 250 ml @ 125 mls/hr DAILY IV 02/28/25 13:00 02/28/25 13:55 125 MLS/HR Ketorolac Tromethamine 15 mg Q6HR IV 02/28/25 12:00 03/05/25 11:59 Hold Heparin Sodium/ Dextrose 250 ml @ 21 mls/hr [id number] IV 02/28/25 18:30 Examination General Appearance: Alert, Oriented X3, Cooperative, No acute distress HEENT: Atraumatic, PERRLA, EOMI, Mucous membrane moist/pink Respiratory: Left-sided crackles, with decreased breath sounds Cardiovascular: Regular rate, Normal S1, Normal S2, No murmurs, no chest wall tenderness Abdominal: Normal bowel sounds, Soft, No tenderness, No hepatospenomegaly, No masses Extremities: No clubbing, No cyanosis, No edema, Normal pulses, No tenderness/swelling Skin: No rashes, No breakdown, No significant lesion Neuro: Normal gait, Normal speech, Strength at 5/5 X4 ext, Normal tone, Sensation intact, Cranial nerves 3-12 NL, Reflexes 2+ Psych/Mental Status: Mental status NL, Mood NL laboratory and microbiology Laboratory Tests 02/28/25 03:54 Test 02/28/25 03:54 Range/Units Serum Glucose 89 74-106 mg/dL Labs and/or images reviewed: Labs reviewed by me, Image(s) reviewed by me Problem List/Assessment/Plan Problem List/Assessment/Plan Pulmonary emboli Sirs positive, due to above NSTEMI, type 2, due to above Atelectasis due to above Pulmonary infarct, due to above Hypokalemia Possible pneumonia, likely due to Gram-positive/Gram-negative bacteria Precipitous hemoglobin dropped, due to vaginal bleeding Ruled out DVT * CT angio shows, extensive pulmonary emboli bilaterally involving interlobar and more distal branches of the pulmonary arterial tree with peripheral wedge- shaped ground-glass opacities in the left lower lobe likely represent evolving pulmonary infarcts * Pelvic ultrasound shows, Markedly enlarged uterus containing numerous masses likely fibroids Plan/recommendation: * Heparin drip * Pain management * Empiric antibiotic Rocephin and azithromycin * IV fluid * Consulted Radiology, recommended medical management * Consulted surgery, recommended anticoagulation * Consulted sash repairer, recommended TXA, 1 time, on outpatient basis follow up DIET: Cardiac diet DVT PROPHYLAXIS: Heparin drip GI PROPHYLAXIS:: Protonix CODE STATUS: Goal of care discussed for more than 18 minutes, full code DISPOSITION: Telemetry Patient's status and plan discussed with the patient. Case discussed with Dr. Lopez. Plan discussed with: Patient, Other (RN) My Orders My Orders Orders - KRISTI TROTTER Procedure Category Date Status Time Acetaminophen Tablet PHA 02/28/25 In Process (Tylenol Tablet) 08:45 Pantoprazole PHA 02/28/25 In Process (Protonix) 10:00 * Radiologist Consult CONS 02/28/25 Transmitted 08:33 Incentive Spirometry ORDERS 02/28/25 Transmitted Q 1hr 08:35 Drug Screen LAB 02/28/25 Logged 08:35 Ketorolac Injection PHA 02/28/25 In Process (Toradol Injection) 12:00 Bilat Lower Dvt US 02/28/25 Resulted 10:55 * Contact Lens Inspector Consultation CONS 02/28/25 Transmitted 11:18 Date of Service: Mar 01, 2025 Billing Provider: KRISTI TROTTER Common Visit Codes: [id number] INP/OBS CARE(HIGH) KRISTI TROTTER Feb 28, 2025 18:24
[2025-02-28] MEDS: HEPARIN SODIUM (PORCINE) 5000 UNITS/ML 1ML VIAL IV ONE (19:20)
--- NOTE | 2025-02-28 20:45 | DVHSR ---
APPROVED REPORT EXAM: Two-dimensional and M-mode echocardiogram with Doppler and color Doppler. Blood Pressure: 143/94 mmHg INDICATION Evaluated trops RISK FACTORS Height: 63, Weight: 195 DIMENSIONS LVDd 4.3 (3.8-5.7cm) LA (2D) 3.2 (1.9-4.0cm) Aortic Root 3.0 (2.0-3.7cm) LVDs 2.4 (2.5-4.0cm) LA (MM) (1.9-4.0cm) Aortic Cusp Exc 1.7 (1.5-2.0cm) EF (%) 75.0 (55-70%) Rt. Atrium 5.2 (1.9-4.0cm) Asc. Aorta cm Mitral Valve Mitral Mitral Stenosis E wave 0.88m/s MV Mean GR. mmHg A wave 1.18m/s MV Peak GR. mmHg E/A ratio 0.7 2D MVA cm2 DECEL Time 186ms PRESS 1/2 Time ms Aortic Valve Aortic Valve Aortic Stenosis V1 1.46m/s AO Mean GR. 7mmHg V2 1.90m/s AO Peak GR. 14mmHg LVOT Diameter 2.1 (1.8-2.4cm) Doppler JOLENE 2.66cm2 Pulmonic Valve V2 0.86m/s Tricuspid Valve TR Velocity 2.91m/s RVSP 42mmHg Other Information Technically limited study due to patient laying on her back sitting straight up. Conclusion NORMAL LV EF AND IS 75% MODERATELY DILATED RV AND RA MILD PUMONARY HYPERTENSION RVSP IS 42 MM OF HG AND IS HIGH VERY MILD POSTERIOR PERICARDIAL EFFUSION NORMAL VALVES
[2025-03-01] VITALS (15 sets, daily range): BP systolic 129–161; BP diastolic 81–97; PULSE 80–106; RESP 16–20; TEMP 97.4–98.8; O2SAT 95–100
[2025-03-01 00:49] LABS: INR 1.09 (0.9-1.15); Partial Thromboplastin Time 53.8 SEC (24.5-34.5); Prothrombin Time 11.5 sec (9.3-11.8)
[2025-03-01 08:02] LABS: INR 1.12 (0.9-1.15); Partial Thromboplastin Time 50.1 SEC (24.5-34.5); Prothrombin Time 11.7 sec (9.3-11.8)
--- NOTE | 2025-03-01 08:16 | DVHINCON2 ---
Date of service: Feb 28, 2025 Referring Physician hospitalist Reason for Consultation fibroid,vag bleeding History of Present Illness pt is admitted for chestpain .pt is WITH HX OF FIBROID UTERUS.LAST PAP WAS IN 2024. PT HAS BLEEDING FOR SIX MONTHS .PT IS VISITING FROM [place] AND WAS PLACED ON [address] Past Medical History ASTHMA,COPD,HTN,AK ,GERD Past Surgical History CSX3 Family History NA Social History SMOKER,3CS ,ONEVAG DEL ,ISAB,I TOP Allergies: Coded Allergies: ESTER Inhibitors (Verified Allergy, Unknown, 02/27/25) Home Meds Reported Medications Norethindrone Acetate-Ethinyl (LO LOESTRIN FE) Tab, 2 TAB PO DAILY, #28 TAB 11 Refills 02/28/25 Current Medications Current Medications Medications (Trade) Dose Ordered Sig/Bhaskar Route PRN Reason Start Time Stop Time Status Last Admin Acetaminophen (Tylenol Tablet) 650 mg Q6HR PO 02/28/25 08:45 03/01/25 05:45 Pantoprazole Sodium (Protonix) 40 mg DAILY IV 02/28/25 10:00 02/28/25 10:14 Ceftriaxone Sodium 50 ml @ 100 mls/hr DAILY@09 IV 03/01/25 09:00 Azithromycin 250 ml @ 125 mls/hr DAILY IV 02/28/25 13:00 02/28/25 13:55 Ketorolac Tromethamine (Toradol Injection) 15 mg Q6HR IV 02/28/25 12:00 02/28/25 19:42 DC Heparin Sodium/ Dextrose 250 ml @ 21 mls/hr [id number] IV 02/28/25 18:30 03/01/25 06:28 Review of Systems Constitutional: no fever, chill, weight loss HEENT: no eye pain, no hearing loss, no oral lesion, no scleral icterus Heart: POS chest pain, no chest pressure Lung: no cough, no dyspnea with exertion Abdomen: see HPI : no pain with urination, normal appearing urine,POS VAG BLEEDING Musculoskeletal: no joint pain, no muscle pain Neurological: no seizure, no loss of sensation, no weakness in extremities Pysch: no depression, no anxiety Derm: no rash, no jaundice Vital Signs Vital Signs Date Time Temp Pulse Resp B/P (MAP) Pulse Ox O2 Delivery O2 Flow Rate FiO2 03/01/25 06:09 87 16 100 03/01/25 06:03 Room Air 03/01/25 06:03 0 21 03/01/25 05:00 97.5 136/89 (105) 97.5 Physical Exam HEENT: [PALE CONJUCTIVAE] NECK:NL] CARDIAC: [RRR] PULMONARY: [CTA] ABDOMEN: [SOFT,OBESE ,LARGE MIDLINE MASS C/W FIBROID ] PELVIC-EXT GENT WNL,VAG SOME BLEEDING NOTED,CX SMOOTH,UTERUS 20 WKS SIZE Labs/Diagnostic Data Labs Test 03/01/25 06:35 03/01/25 06:00 02/28/25 12:00 02/28/25 03:54 Range/Units Lactic Acid Level 1.0 0.4-2.0 mmol/L Eosinophils (%) (Auto) 0.9 0.0-7.0 % Eosinophils # (Auto) 0.1 0-0.8 10 ^3/uL Basophils # (Auto) 0.1 0-0.2 10 ^3/uL Nucleated Red Blood Cells 0.2 % B-Type Natriuretic Peptide 414.23 0-100 pg/mL Thyroid Stimulating Hormone (TSH) 2.35 0.55-4.78 uIU/mL Test 02/27/25 20:00 02/27/25 16:13 02/27/25 12:36 Range/Units Magnesium Level 1.9 1.6-2.6 mg/dL Troponin I High Sensitivity 42 *H </=34 ng/L D-Dimer, Quantitative 4.31 H 0.0-0.49 mg/L FEU Primary Diagnosis MENORRHAGIA WITH ANEMIA SYMPTOMATIC FIBROID UTERUS Plan PT NEEDS ENDOMETRIAL BX AND FU OUTPT . PT WILL FU WITH [employer] WILL SIGN OFF MAYANK [employer]R[facility] FOR THIS CONSULTATION Plan discussed with: Patient Visit Coding OBGYN Date of Service: Feb 28, 2025 Billing Provider: GABBY JIMENEZ DO PROCESS CONTROL SUPERVISOR Common Visit Codes: [id number] OBS CARE (HIGH) PROCESS CONTROL SUPERVISOR Consultation Codes: [id number] CONSULT <110MIN GABBY JIMENEZ DO Mar 01, 2025 08:16
--- NOTE | 2025-03-01 08:31 | CONS ---
Pharmacy Clinical Information: HEPARIN DRIP, PE PROTOCOL @06:35 APTT 50.1 - NO BOLUS / NO CHANGE (HEPARIN DRIP RUNNING AT 2100 UNITS/HR) NEXT APTT DRAW SCHEDULED @12:30 PER RX PROTOCOL CONFIRMED AND READ BACK WITH SERAFIN RODARTE PHARMACIST Mar 01, 2025 08:30
[2025-03-01 08:32] LABS: Anion Gap 10 (5-15); BUN/Creatinine Ratio 12.5 (10.0-20.0); Calcium 9.6 mg/dL (8.7-10.4); Carbon Dioxide 23 mmol/L (20-31); Chloride 105 mmol/L (98-107); Potassium 4.2 mmol/L (3.5-5.1); Sodium 138 mmol/L (136-145); Total Protein 7.6 g/dL (5.7-8.2)
[2025-03-01 08:33] LABS: Albumin 4.1 g/dL (3.2-4.8)
[2025-03-01 08:35] LABS: COVID19 ANTIGEN SOFIA FIA NEGATIVE (NEGATIVE)
[2025-03-01 08:39] LABS: Alanine Aminotransferase < 9 U/L (7-40); Alkaline Phosphatase 36 U/L (46-116); Bilirubin, Total 0.2 mg/dL (0.2-1.0); Blood Urea Nitrogen 9 mg/dL (9-23); Glucose 110 mg/dL (74-106)
[2025-03-01] MEDS: TRANEXAMIC ACID 1,000 MG in SODIUM CHL 0.9% 100 ML IV ONE (09:49)
[2025-03-01 11:27] LABS: Hematocrit 26.1 % (36.0-46.0); Hemoglobin 8.1 g/dL (12.2-16.2); Mean Corpuscular Hemoglobin 23.8 pg (28.0-32.0); Mean Corpuscular Volume 76.6 fL (80.0-100.0); Nucleated Red Blood Cells % 0.2 %
[2025-03-01 13:28] LABS: INR 1.14 (0.9-1.15); Prothrombin Time 11.9 sec (9.3-11.8)
[2025-03-01 13:33] LABS: Partial Thromboplastin Time 80.5 SEC (24.5-34.5)
[2025-03-01] MEDS: HEPARIN DRIP/D5W 100UNITS/ML 250 ML IV SCH (13:45)
--- NOTE | 2025-03-01 13:46 | CONS ---
Pharmacy Clinical Information: HEPARIN DRIP, DVT PROTOCOL @12:51 APTT 80.5 - DECREASE HEPARIN DRIP RATE TO 1900 UNITS/HR NEXT APTT DRAW SCHEDULED @1999 PER RX PROTOCOL CONFIRMED AND READ BACK WITH [facility] Mar 01, 2025 13:46
--- NOTE | 2025-03-01 15:07 | DVHPNRES ---
Progress Note Date Seen: Mar 01, 2025 Resident Creating Document: KRISTI TROTTER RESDIENT Medical Necessity Reason Pt with a Central, PICC or Fol: No Subjective Review of Systems This is a 49-year-old lady with past medical history of hypertension, COPD, GERD and fibroid came to the hospital due to chest pain and shortness of breaths since 1 week. Pain is localized at left side of chest, sharp, worsened with taking DB. She also reports of generalized weakness, and per vaginal bleeding. She has history of fibroids with vaginal bleeding since 20 years, previously recommended surgical treatment, but due to insurance issues the patient could not get the surgery. Surgical history: (3) Social history: Current smoker with 30 pack year history On 02/27, the patient seen and examined at the bedside. Patient is still complained of shortness of breaths, and chest pain. She also reports of per vaginal bleeding, which is baseline status. On 02/28, the patient seen and examined at the bedside. Patient is feeling better since admission but still complained of shortness of breaths and chest pain. Objective vital signs Vital Sign Date Time Temp Pulse Resp B/P (MAP) Pulse Ox O2 Delivery O2 Flow Rate FiO2 03/01/25 12:32 98.0 104 20 129/81 (97) 97 98.0 03/01/25 11:32 Room Air* 0 21 Total Intake and Output 02/28/25 02/28/25 03/01/25 15:00 23:00 07:00 Intake Total 658 ml 300 ml Balance 658 ml 300 ml medications Current Medications Medications Dose Ordered Sig/Bhaskar Route Start Time Stop Time Status Last Admin Dose Admin Acetaminophen/ Hydrocodone Bitart 1 tab Q4HP PRN PO 02/27/25 15:00 03/01/25 09:29 1 TAB Ondansetron HCl 4 mg Q4HP PRN IV 02/27/25 15:00 Morphine Sulfate 2 mg Q30M PRN IV 02/27/25 15:00 Ipratropium [place] 0.5 mg Q6HWA NEB 02/27/25 18:00 03/01/25 11:32 0.5 MG Albuterol 2.5 mg Q6HWA NEB 02/27/25 18:00 Cancel Levalbuterol HCl 0.625 mg Q6HWA NEB 02/27/25 18:00 03/01/25 11:32 0.625 MG Acetaminophen 650 mg Q6HR PO 02/28/25 08:45 03/01/25 14:50 650 MG Pantoprazole Sodium 40 mg DAILY IV 02/28/25 10:00 03/01/25 09:13 40 MG Ceftriaxone Sodium 50 ml @ 100 mls/hr DAILY@09 IV 03/01/25 09:00 03/01/25 09:13 100 MLS/HR Azithromycin 250 ml @ 125 mls/hr DAILY IV 02/28/25 13:00 02/28/25 13:55 125 MLS/HR Heparin Sodium/ Dextrose 250 ml @ 19 mls/hr [id number] IV 03/01/25 13:45 Examination General Appearance: Alert, Oriented X3, Cooperative, No acute distress HEENT: Atraumatic, PERRLA, EOMI, Mucous membrane moist/pink Respiratory: Left-sided crackles, with decreased breath sounds Cardiovascular: Regular rate, Normal S1, Normal S2, No murmurs, no chest wall tenderness Abdominal: Normal bowel sounds, Soft, No tenderness, No hepatospenomegaly, No masses Extremities: No clubbing, No cyanosis, No edema, Normal pulses, No tenderness/swelling Skin: No rashes, No breakdown, No significant lesion Neuro: Normal gait, Normal speech, Strength at 5/5 X4 ext, Normal tone, Sensation intact, Cranial nerves 3-12 NL, Reflexes 2+ Psych/Mental Status: Mental status NL, Mood NL laboratory and microbiology Laboratory Tests 03/01/25 06:35 Test 03/01/25 06:35 Range/Units Serum Glucose 110 H 74-106 mg/dL Labs and/or images reviewed: Labs reviewed by me, Image(s) reviewed by me Problem List/Assessment/Plan Problem List/Assessment/Plan Pulmonary emboli Sirs positive, due to above NSTEMI, type 2, due to above Atelectasis due to above Pulmonary infarct, due to above Hypokalemia Possible pneumonia, likely due to Gram-positive/Gram-negative bacteria Precipitous hemoglobin dropped, due to vaginal bleeding Ruled out DVT * CT angio shows, extensive pulmonary emboli bilaterally involving interlobar and more distal branches of the pulmonary arterial tree with peripheral wedge- shaped ground-glass opacities in the left lower lobe likely represent evolving pulmonary infarcts * Pelvic ultrasound shows, Markedly enlarged uterus containing numerous masses likely fibroids Plan/recommendation: * Heparin drip * Pain management * Empiric antibiotic Rocephin and azithromycin * IV fluid * Consulted Radiology, recommended medical management * Consulted surgery, recommended anticoagulation * Consulted court of appeals judge, recommended TXA, 1 time, on outpatient basis follow up DIET: Cardiac diet DVT PROPHYLAXIS: Heparin drip GI PROPHYLAXIS:: Protonix CODE STATUS: Goal of care discussed for more than 18 minutes, full code DISPOSITION: Telemetry Patient's status and plan discussed with the patient. Case discussed with Dr. Lopez. Plan discussed with: Patient, Other (RN) Date of Service: Mar 01, 2025 Billing Provider: LUIS E DREW MD Common Visit Codes: [id number] INP/OBS CARE(HIGH) KRISTI TROTTER [facility] Mar 01, 2025 15:07
--- NOTE | 2025-03-01 17:31 | MEDREC ---
[facility] Intervention Section I [facility] Intervention: Review courses of therapy (Based on the chest X-ray findings, there is no evidence of pneumoniaonly scarring or atelectasis. If there are no signs of an active infection, please consider d/c antibiotics) RICHARD MOLINA [facility] RESIDENT Mar 01, 2025 17:31
[2025-03-01 20:27] LABS: INR 1.08 (0.9-1.15); Partial Thromboplastin Time 63.0 SEC (24.5-34.5); Prothrombin Time 11.4 sec (9.3-11.8)
--- NOTE | 2025-03-01 20:52 | CONS ---
Pharmacy Clinical Information: HEPARIN PER PE PROTOCOL: APTT result of 63.0 received from draw on 03/01 @1999. No change in rate, continue at 1900 units per hour (19 ml/hr). Orders read back and confirmed with MARCELA Evangelista @2044. Next APTT scheduled for 03/02 @0200. VALENTINA MENDOZA PHARMACIST Mar 01, 2025 20:52
[2025-03-02] VITALS (16 sets, daily range): BP systolic 122–141; BP diastolic 66–89; PULSE 75–102; RESP 16–19; TEMP 97.9–98.7; O2SAT 95–100
[2025-03-02 02:14] LABS: Hematocrit 24.9 % (36.0-46.0); Hemoglobin 7.9 g/dL (12.2-16.2); Mean Corpuscular Hemoglobin 24.2 pg (28.0-32.0); Mean Corpuscular Volume 76.6 fL (80.0-100.0); Nucleated Red Blood Cells % 0.3 %
[2025-03-02 02:22] LABS: INR 1.07 (0.9-1.15); Partial Thromboplastin Time 26.6 SEC (24.5-34.5); Prothrombin Time 11.3 sec (9.3-11.8)
[2025-03-02 02:33] LABS: Albumin 3.7 g/dL (3.2-4.8); Anion Gap 8 (5-15); BUN/Creatinine Ratio 15.2 (10.0-20.0); Blood Urea Nitrogen 10 mg/dL (9-23); Calcium 9.2 mg/dL (8.7-10.4); Carbon Dioxide 26 mmol/L (20-31); Chloride 105 mmol/L (98-107); Potassium 3.8 mmol/L (3.5-5.1); Sodium 139 mmol/L (136-145); Total Protein 6.8 g/dL (5.7-8.2)
[2025-03-02 02:37] LABS: Alanine Aminotransferase < 9 U/L (7-40); Alkaline Phosphatase 31 U/L (46-116); Bilirubin, Total < 0.2 mg/dL (0.2-1.0); Glucose 122 mg/dL (74-106)
[2025-03-02] MEDS: HEPARIN SODIUM (PORCINE) 5000 UNITS/ML 1ML VIAL IV ONE (03:35)
[2025-03-02] MEDS: HEPARIN DRIP/D5W 100UNITS/ML 250 ML IV SCH (03:43)
--- NOTE | 2025-03-02 10:17 | DVHPNRES ---
Progress Note Date Seen: Mar 02, 2025 Resident Creating Document: KRISTI TROTTER RESDIENT Medical Necessity Reason Pt with a Central, PICC or Fol: No Subjective Review of Systems This is a 49-year-old lady with past medical history of hypertension, COPD, GERD and fibroid came to the hospital due to chest pain and shortness of breaths since 1 week. Pain is localized at left side of chest, sharp, worsened with taking DB. She also reports of generalized weakness, and per vaginal bleeding. She has history of fibroids with vaginal bleeding since 20 years, previously recommended surgical treatment, but due to insurance issues the patient could not get the surgery. Surgical history: (3) Social history: Current smoker with 30 pack year history On 02/27, the patient seen and examined at the bedside. Patient is still complained of shortness of breaths, and chest pain. She also reports of per vaginal bleeding, which is baseline status. On 02/28, the patient seen and examined at the bedside. Patient is feeling better since admission but still complained of shortness of breaths and chest pain. On 03/02, the patient seen and examined at the bedside. Patient is feeling better, but still complaining of shortness of breaths and chest pain. Patient also reports vaginal bleeding and passing blood clot. Objective vital signs Vital Sign Date Time Temp Pulse Resp B/P (MAP) Pulse Ox O2 Delivery O2 Flow Rate FiO2 03/02/25 09:00 98.0 84 18 141/89 (106) 98 98.0 03/02/25 05:44 Room Air 0.0 03/02/25 05:44 21 Total Intake and Output 03/01/25 03/01/25 03/02/25 15:00 23:00 07:00 Intake Total 50 ml 500 ml 800 ml Balance 50 ml 500 ml 800 ml medications Current Medications Medications Dose Ordered Sig/Bhaskar Route Start Time Stop Time Status Last Admin Dose Admin Acetaminophen/ Hydrocodone Bitart 1 tab Q4HP PRN PO 02/27/25 15:00 03/02/25 09:14 1 TAB Ondansetron HCl 4 mg Q4HP PRN IV 02/27/25 15:00 Morphine Sulfate 2 mg Q30M PRN IV 02/27/25 15:00 Ipratropium [place] 0.5 mg Q6HWA NEB 02/27/25 18:00 03/02/25 05:45 0.5 MG Albuterol 2.5 mg Q6HWA [facility] 02/27/25 18:00 Cancel Levalbuterol HCl 0.625 mg Q6HWA NEB 02/27/25 18:00 03/02/25 05:44 0.625 MG Acetaminophen 650 mg Q6HR PO 02/28/25 08:45 03/02/25 05:37 650 MG Pantoprazole Sodium 40 mg DAILY IV 02/28/25 10:00 03/02/25 09:15 40 MG Ceftriaxone Sodium 50 ml @ 100 mls/hr DAILY@09 IV 03/01/25 09:00 03/02/25 09:16 100 MLS/HR Azithromycin 250 ml @ 125 mls/hr DAILY IV 02/28/25 13:00 02/28/25 13:55 125 MLS/HR Heparin Sodium/ Dextrose 250 ml @ 22 mls/hr [id number] IV 03/02/25 03:30 03/02/25 03:43 22 MLS/HR Examination General Appearance: Pale, Alert, Oriented X3, Cooperative, No acute distress HEENT: Atraumatic, PERRLA, EOMI, Mucous membrane moist/pink Respiratory: Left-sided crackles, with decreased breath sounds Cardiovascular: Regular rate, Normal S1, Normal S2, No murmurs, no chest wall tenderness Abdominal: Normal bowel sounds, Soft, No tenderness, No hepatospenomegaly, No masses Extremities: No clubbing, No cyanosis, No edema, Normal pulses, No tenderness/swelling Skin: No rashes, No breakdown, No significant lesion Neuro: Normal gait, Normal speech, Strength at 5/5 X4 ext, Normal tone, Sensation intact, Cranial nerves 3-12 NL, Reflexes 2+ Psych/Mental Status: Mental status NL, Mood NL laboratory and microbiology Laboratory Tests 03/02/25 01:43 Test 03/02/25 01:43 Range/Units Serum Glucose 122 H 74-106 mg/dL Labs and/or images reviewed: Labs reviewed by me, Image(s) reviewed by me Problem List/Assessment/Plan Problem List/Assessment/Plan Pulmonary emboli Suspected sepsis due to suspected pneumonia NSTEMI, type 2, due to above Atelectasis due to above Pulmonary infarct, due to above Hypokalemia Suspected pneumonia; Gram-positive versus Gram-negative Precipitous hemoglobin dropped, due to vaginal bleeding Tobacco use disorder Ruled out DVT * CT angio shows, extensive pulmonary emboli bilaterally involving interlobar and more distal branches of the pulmonary arterial tree with peripheral wedge- shaped ground-glass opacities in the left lower lobe likely represent evolving pulmonary infarcts * Pelvic ultrasound shows, Markedly enlarged uterus containing numerous masses likely fibroids Plan/recommendation: * Heparin drip to be discontinued and switched to enoxaparin, therapeutic dose * Pain management * Empiric antibiotic Rocephin and azithromycin * IV fluid * Consulted Radiology, recommended medical management * Consulted surgery, recommended anticoagulation * Consulted land surveyor, recommended TXA 1gm, 1 time, and outpatient basis follow up * Counseled on tobacco use cessation for 16 minutes DIET: Cardiac diet DVT PROPHYLAXIS: Heparin drip that will be switched to therapeutic dose of enoxaparin GI PROPHYLAXIS:: Protonix CODE STATUS: Goal of care discussed for 20 minutes, full code DISPOSITION: Telemetry Patient's status and plan discussed with the patient. Case discussed with Dr. Humphries. Plan discussed with: Patient, Other (RN) Date of Service: Mar 02, 2025 Billing Provider: STACIE HUMPHRIES MD Common Visit Codes: [id number] INP/OBS CARE(HIGH) Secondary Visit Codes: [id number] CHNG SMOKING >10MIN (16 minutes), 55975- ADVANCED CARE PLAN 30 MINUTES (20 minutes) KRISTI TROTTER Mar 02, 2025 10:17 STACIE HUMPHRIES MD Mar 06, 2025 08:40
[2025-03-02] MEDS ORDERED: MORPHINE SULFATE 4 MG/ML SYR/VIAL IV PRN (10:30)
[2025-03-02] MEDS: ENOXAPARIN SOD 100 MG/1 ML SYRINGE SC ONE (11:15)
[2025-03-02 11:16] LABS: Nucleated Red Blood Cells % 0.1 %
[2025-03-02 11:18] LABS: Hematocrit 26.6 % (36.0-46.0); Hemoglobin 8.1 g/dL (12.2-16.2); Mean Corpuscular Hemoglobin 23.7 pg (28.0-32.0); Mean Corpuscular Volume 77.5 fL (80.0-100.0)
[2025-03-02 11:37] LABS: Alanine Aminotransferase 10 U/L (7-40); Albumin 3.7 g/dL (3.2-4.8); Anion Gap 7 (5-15); BUN/Creatinine Ratio 15.4 (10.0-20.0); Blood Urea Nitrogen 10 mg/dL (9-23); Calcium 9.0 mg/dL (8.7-10.4); Carbon Dioxide 25 mmol/L (20-31); Chloride 105 mmol/L (98-107); Potassium 4.3 mmol/L (3.5-5.1); Sodium 137 mmol/L (136-145); Total Protein 6.7 g/dL (5.7-8.2)
[2025-03-02 11:38] LABS: Alkaline Phosphatase 33 U/L (46-116); Bilirubin, Total < 0.2 mg/dL (0.2-1.0); Glucose 121 mg/dL (74-106)
[2025-03-02] MEDS: ENOXAPARIN SOD 100 MG/1 ML SYRINGE SC SCH (21:16)
[2025-03-03] VITALS (10 sets, daily range): BP systolic 126–151; BP diastolic 76–96; PULSE 90–115; RESP 18–20; TEMP 97.7–98.4; O2SAT 94–100
--- NOTE | 2025-03-03 11:02 | DVHDSRES ---
Discharge Summary Date of Admission Resident Creating Document: KRISTI TROTTER RESDIENT Feb 27, 2025 at 14:56 Date of Discharge: Mar 03, 2025 Admitting Diagnosis Shortness of breath with localized chest pain in the left side Labs/Diagnostic Data: Laboratory Results Test 03/02/25 15:50 03/02/25 11:00 03/02/25 01:43 03/01/25 06:00 Stool Occult Blood Positive (Negative) Stool Occult Blood Sample #3 (Negative) White Blood Count 6.6 10^3/uL (4.4-10.8) Red Blood Count 3.43 10^6/uL (4.0-5.20) Hemoglobin 8.1 g/dL (12.2-16.2) Hematocrit 26.6 % (36.0-46.0) Mean Corpuscular Volume 77.5 fL (80.0-100.0) Mean Corpuscular Hemoglobin 23.7 pg (28.0-32.0) Mean Corpuscular Hemoglobin Concent 30.6 g/dL (32.0-36.0) Red Cell Distribution Width 22.6 % (11.8-14.3) Platelet Count 580 10^3/uL (140-450) Mean Platelet Volume 8.1 fL (6.9-10.8) Neutrophils (%) (Auto) 60.9 % (37.0-80.0) Lymphocytes (%) (Auto) 26.6 % (10.0-50.0) Monocytes (%) (Auto) 10.0 % (0.0-12.0) Eosinophils (%) (Auto) 1.2 % (0.0-7.0) Basophils (%) (Auto) 1.3 % (0.0-2.0) Neutrophils # (Auto) 4.0 10 ^3/uL (1.6-8.6) Lymphocytes # (Auto) 1.7 10 ^3/uL (0.4-5.4) Monocytes # (Auto) 0.7 10 ^3/uL (0-1.3) Eosinophils # (Auto) 0.1 10 ^3/uL (0-0.8) Basophils # (Auto) 0.1 10 ^3/uL (0-0.2) Nucleated Red Blood Cells 0.1 % Sodium Level 137 mmol/L (136-145) Potassium Level 4.3 mmol/L (3.5-5.1) Chloride Level 105 mmol/L (98-107) Carbon Dioxide Level 25 mmol/L (20-31) Anion Gap 7 (5-15) Blood Urea Nitrogen 10 mg/dL (9-23) Creatinine 0.65 mg/dL (0.550-1.02) Glomerular Filtration Rate Calc 107 mL/min (>90) BUN/Creatinine Ratio 15.4 (10.0-20.0) Serum Glucose 121 mg/dL (74-106) Calcium Level 9.0 mg/dL (8.7-10.4) Total Bilirubin < 0.2 mg/dL (0.2-1.0) Aspartate Amino Transferase (AST) 21 U/L (13-40) Alanine Aminotransferase (ALT) 10 U/L (7-40) Alkaline Phosphatase 33 U/L (46-116) Total Protein 6.7 g/dL (5.7-8.2) Albumin 3.7 g/dL (3.2-4.8) Prothrombin Time 11.3 sec (9.3-11.8) Prothrombin Time INR 1.07 (0.9-1.15) Activated Partial Thromboplast Time 26.6 SEC (24.5-34.5) Influenza Type A Antigen Negative (Negative) Influenza Type B Antigen Negative (Negative) SARS-CoV-2 Antigen (Rapid) Negative (NEGATIVE) Test 02/28/25 12:00 02/28/25 03:54 02/27/25 20:00 02/27/25 16:13 Lactic Acid Level 1.0 mmol/L (0.4-2.0) B-Type Natriuretic Peptide 414.23 pg/mL (0-100) Thyroid Stimulating Hormone (TSH) 2.35 uIU/mL (0.55-4.78) Magnesium Level 1.9 mg/dL (1.6-2.6) Troponin I High Sensitivity 42 ng/L (</=34) Test 02/27/25 12:36 D-Dimer, Quantitative 4.31 mg/L FEU (0.0-0.49) Other Laboratory Tests 03/02/25 11:00 Brief Hx & Hospital Course: HISTORY OF PRESENT ILLNESS: This is a 49-year-old lady with past medical history of hypertension, COPD, GERD and fibroid came to the hospital due to chest pain and shortness of breaths since 1 week. Pain is localized at left side of chest, sharp, worsened with taking DB. She also reports of generalized weakness, and per vaginal bleeding. She has history of fibroids with vaginal bleeding since 20 years, previously recommended surgical treatment, but due to insurance issues the patient could not get the surgery. Surgical history: (3) Social history: Current smoker with 30 pack year history HOSPITAL COURSE: Patient was admitted to the hospital due to pulmonary emboli. CT angio performed, showed extensive pulmonary emboli bilaterally involving interlobar and more distal branches of the pulmonary arterial tree with peripheral wedge- shaped ground-glass opacities in the left lower lobe likely represent evolving pulmonary infarcts. Patient was started on heparin drip, vascular surgeon and the intervention Radiology consulted, recommended medical management. Patient was also reporting chronic per vaginal bleeding since 20 years, pelvic ultrasound performed, showed Markedly enlarged uterus containing numerous masses likely fibroids. OBGYN consulted, recommended medical management (1 dose of tranexamic acid 1 g) at the moment, on outpatient follow up with OBGYN. During hospital admission, the patient was given empiric antibiotic of Rocephin and azithromycin. And also due to chest pain, the patient was given pain killer, patient was also encouraged to use incentive spirometry for prevention of atelectasis. On 03/02, heparin drip was discontinued the patient was switched to enoxaparin. On 03/03, the patient was feeling better since admission. Patient did not report any chest pain, shortness of breaths, discharge plan discussed with the patient the patient discharged home. Physical examination on the day of discharge: General Appearance: Alert, Oriented X3, Cooperative, No acute distress HEENT: Atraumatic, PERRLA, EOMI, Mucous membrane moist/pink Respiratory: Clear to auscultation, Normal air movement Cardiovascular: Regular rate, Normal S1, Normal S2, No murmurs, no chest wall tenderness Abdominal: Normal bowel sounds, Soft, No tenderness, No hepatosplenomegaly, No masses Extremities: No clubbing, No cyanosis, No edema, Normal pulses, No tenderness/swelling Skin: No rashes, No breakdown, No significant lesion Neuro: Normal gait, Normal speech, Strength at 5/5 X4 ext, Normal tone, Sensation intact, Cranial nerves 3-12 NL, Reflexes 2+ Psych/Mental Status: Mental status NL, Mood NL DISCHARGE PLAN: Follow up with the PCP within 1 week of the discharge. Follow up with the ELECTRICAL MACHINIST on outpatient basis. Eliquis 10 mg b.i.d. for 10 days, then 5 mg b.i.d. for 3 months and then follow up with the Oncology Continue home meds Discussed with Dr. Humphries Consults/Reason for consult Consulted IR, and vascular surgery for extensive pulmonary emboli; consulted Gynecology for vaginal bleed Condition at Discharge: Stable Final Diagnosis/Problems List Pulmonary emboli Suspected sepsis due to suspected pneumonia NSTEMI, type 2, due to above Atelectasis due to above Pulmonary infarct, due to above Hypokalemia; replaced and resolved Suspected pneumonia, likely due to Gram-positive/Gram-negative bacteria Precipitous hemoglobin dropped, due to vaginal bleeding Ruled out DVT Tobacco use disorder Discharge Disposition: Home Discharge Instruct/Medications Diet: Cardiac 2g Na,low cholest Activity: No Restrictions, As Tolerated Follow Up/Referral: To follow up with the primary care provider within 1 to 2 weeks; to follow up with Gynecology within 1 to 2 weeks; to follow up with Hematology and Oncology within 2 to 4 weeks Medications: As above Scheduled Apixaban Base (Eliquis), 5 MG PO BID Apixaban Base (Eliquis), 10 MG PO BID Norethindrone Acetate-Ethinyl (Lo Loestrin Fe), 2 TAB PO DAILY, (Reported) Discharge Statement: "Patient was advised to return to the ER or call 911 if any headaches, dizziness, shortness of breath, chest pain, abdominal pain, bleeding, fevers, or worsening of medical condition. Patient was counseled about treatment plan, medications, possible side effects, patientverbalized understanding. All questions were answered to the best of my ability. This discharge took greater then 30 minutes in planning, reviewing documentation, counseling the patient, and discussing with other team members." ASSESSMENT ASSESSMENT Assessment Date of Service: Mar 03, 2025 Billing Provider: STACIE HUMPHRIES MD Common Visit Codes: [id number]/[id number] DISCH DAY >30min ERMAVENUKRISTI ANDREA RESDIENT Mar 03, 2025 11:02 STACIE HUMPHRIES MD Mar 06, 2025 08:45
[2025-03-03] MEDS ORDERED: APIX5TAB PO (11:03)
== END 2025-03-03 16:15 | disposition home or self-care (01) | DRG 175 ==
LOC: ER 11:39 → OVERFLOW 14:56 → TELE-EAST 22:46
PROVIDERS: ADMIT Student in an Organized Health Care Education/Training Program; ATTEND Student in an Organized Health Care Education/Training Program
DX: I26.99 Other pulmonary embolism without acute cor pulmonale (principal); I21.A1 Myocardial infarction type 2; J15.69 Pneumonia due to other Gram-negative bacteria; J15.9 Unspecified bacterial pneumonia; D62 Acute posthemorrhagic anemia; R65.10 Systemic inflammatory response syndrome (SIRS) of non-infectious origin without acute organ dysfunction; I10 Essential (primary) hypertension; J44.89 Other specified chronic obstructive pulmonary disease; J98.11 Atelectasis; Z20.822 Contact with and (suspected) exposure to COVID-19; E87.6 Hypokalemia; N93.9 Abnormal uterine and vaginal bleeding, unspecified; N92.0 Excessive and frequent menstruation with regular cycle; F17.210 Nicotine dependence, cigarettes, uncomplicated; K21.9 Gastro-esophageal reflux disease without esophagitis; D25.9 Leiomyoma of uterus, unspecified; Z88.8 Allergy status to other drugs, medicaments and biological substances; Z79.899 Other long term (current) drug therapy
CPT/HCPCS: 36415; 71045; 71275; 74176; 76856; 80048; 80053; 82270; 83605; 83735; 83880; 84132; 84443; 84484; 85025; 85379; 85610; 85730; 86850; 86900; 86901; 87426; 87804; 93306; 93970; 94640; 96365; 96372; 96375; 99291; G0378; J1885; J2470